=== PATIENT | male | born 1955 | race African-American/Black ===

== ENCOUNTER 2017-03-19 10:59 | Emergency (ER) | payer BC ==
[~2017-03-19] VITALS: Ht 182.9 cm; Wt 77.1 kg
--- NOTE | ~2017-03-19 | CR126 ---
[facility] A Service of [facility] RADIOLOGY TEXT RESULTS PATIENT: EVARISTO JOHNSON LOCATION: [place] : 57 UNIT #: [id number] AGE: [address]: Miya Sol APRN SEX: M ORDER DR: [id number] [facility] [address] [place], [place] [address] [id number] MR#: [id number] Acc #: [id number] NAME: EVARISTO JOHNSON : 1955 SEX: M STUDY DATE/TIME: 03/19/2017 11:39 UNIT: CFTX ROOM: STUDY DESCRIPTION: CR Foot Complete Min 3 View Lt Attending Physician: Miya Sol A.P.R.N. Ordering Physician: Ed Kvng Novoa M.D. Primary Care Physician: Sarah Suarez A.P.R.N. MEDICAL IMAGING REPORT This report is preliminary unless electronic signature is present EXAM Left foot 3 views see 03/19/2017 1139 hours HISTORY Painful knot on back of heel for 2 weeks. No reported injury. COMPARISON None. FINDINGS AP, lateral and oblique views demonstrate no acute fracture or dislocation. There is moderate joint space loss and spurring at the first metatarsophalangeal joint. There is spurring at the posterior calcaneus at the Achilles insertion site with mild overlying soft tissue prominence which could indicate inflammation. IMPRESSION 1. No acute fracture dislocation. 2. 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 3. There is spurring at the Achilles insertion site on the calcaneus with mild overlying soft tissue swelling. Dictated by... Harika Potts M.D. THIS IS AN ELECTRONICALLY VERIFIED REPORT Harika Potts M.D. at 03/19/2017 2:35 PM SADA/vanessar TD: 03/19/2017 13:40 JOB #: [id number] MEDICAL IMAGING REPORT [facility] A Service of [facility] RADIOLOGY TEXT RESULTS PATIENT: EVARISTO JOHNSON LOCATION: [place] : [birth year] UNIT #: [id number] AGE: [address]: Miya Sol APRN SEX: M ORDER DR: Page 1 of 1 COPY
== END 2017-03-19 12:45 | disposition home or self-care (01) ==
LOC: CFTX 10:59 → CED 10:59 → CFTX 12:00 → CED 12:00 → CFTX 12:45
DX: M77.52 Other enthesopathy of left foot and ankle (principal); L03.116 Cellulitis of left lower limb; I10 Essential (primary) hypertension; Z91.040 Latex allergy status
CPT/HCPCS: 29540; 73630; 99283